=== PATIENT | female | born 1965 ===

== ENCOUNTER 2018-08-04 15:43 | Outpatient (REF) | payer BC, SELFPAY ==
--- NOTE | 2018-08-04 11:30 | PAPFT_PTH ---
PATIENT: Norma Martínez LOC: DEE U#:[id number] AGE/SX: 52/F ROOM: RE08/04/[address]: BO Johnson : 1965 BED: DIS: 08/04/2018 SPEC #: [id number] RECD: 08/04/18 18:01 STATUS: COLLEEN REQ #: [id number] EVAN: 08/04/18 11:[address]: Kamilla Cade DEPT: [facility] Cytology RECD BY: Arielle Tolliver Tissues: 1 - CX/ENDOCX FOR PAP SMEARS Procedures: PAP THIN PREP/UVM Screening HPV DNA PROBE Comments: [id number]
== END 2018-08-04 16:03 ==
LOC: LBN 15:43
PROVIDERS: Visit Provider Nurse Practitioner Family
DX: Z12.4 Encounter for screening for malignant neoplasm of cervix (principal); Z11.51 Encounter for screening for human papillomavirus (HPV)
CPT/HCPCS: 88142; 87624

== ENCOUNTER 2019-01-22 14:45 | Outpatient (REF) | payer BC, SELFPAY ==
--- NOTE | 2019-01-22 13:20 | PAPFT_PTH ---
PATIENT: Norma Martínez LOC: DEE U#:[id number] AGE/SX: 53/F ROOM: RE01/22/[address]: Britt John APRN : 1965 BED: DIS: 01/22/2019 SPEC #: [id number] RECD: 01/22/19 18:26 STATUS: COLLEEN [place] #: [id number] EVAN: 01/22/19 13:[address]: Britt John DEPT: [facility] Cytology RECD BY: Arielle Tolliver Tissues: 1 - CX/ENDOCX FOR PAP SMEARS Procedures: PAP THIN PREP/UVM Screening HPV DNA PROBE Comments: [id number]
== END 2019-01-22 15:05 ==
LOC: LBN 14:45
PROVIDERS: PCP Nurse Practitioner Adult Health; Visit Provider Nurse Practitioner Adult Health
DX: Z12.4 Encounter for screening for malignant neoplasm of cervix (principal); Z11.51 Encounter for screening for human papillomavirus (HPV)
CPT/HCPCS: 88142; 87624

== ENCOUNTER 2019-04-03 01:13 | Emergency (ER) | payer BC, SELFPAY ==
[2019-04-03] VITALS (20 sets, daily range): BP systolic 101–131; BP diastolic 53–67; PULSE 52–69; RESP 11–22; TEMP 36.6–36.8; O2SAT 95–98
--- NOTE | 2019-04-03 01:27 | W.ED.GENAD ---
Discharge Plan Disposition Patient Disposition: HOME Condition: Stable Discharge Details Chief Complaint: Dizzy/Sync Clinical Impression: Vertigo ED Provider: Mukesh Stringer Home Meds and New Rx's Prescriptions: New meclizine 25 mg tablet 25 mg PO TID PRN (Reason: dizziness) Qty: 30 RF: 0 scopolamine base 1 mg over 3 days patch 3 day 1 patch TD Q3D PRN (Reason: motion sickness) Qty: 10 RF: 0 ondansetron 4 mg tablet,disintegrating 4 mg PO QID PRN (Reason: nausea and vomiting) Qty: 30 RF: 0 No Action vitamin B complex tablet 1 tab PO DAILY PRNRF: 0 epinephrine [EpiPen] 0.3 mg/0.3 mL auto-injector 0.3 mg IM ONCE PRN (Reason: anaphylaxis/cold urticaria) Qty: 2 RF: 0 flaxseed oil 1,000 MG capsule 1,000 mg PO RF: 0 calcium carbonate-vitamin D3 1 EACH tablet 1 ea PO DAILY RF: 0 Lactobacillus acidophilus 1 EACH capsule 1 ea PO PRN RF: 0 fish,bora,flax oils-om3,6,9no1 [[place] 3-6-9 Complex] 400 MG capsule 400 mg PO PRN RF: 0 Discharge Instructions Instructions: Vertigo (ED) Additional Instructions: follow up with your primary care provider if you are not feeling better in 3-4 days if you have weakness, chest pain/pressure, difficulty breathing, slurred speech or severe headache/neck pain return to the emergency department Medical Decision Making 53 yo female with 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 She was admitted to [facility] 3 weeks ago per pt for low heart rate that resolved and was worried this was causing her symptoms tonight so called ems. On arrival she has stable vitals including heart rate and is in sinus rhythm. She denies chest pain/pressure, weakness, sob, abd pain. She has no focal neuro deficits and reassuring hiints exam so doubt central vertigo, cva. She has nystagmus when looking to the left that is horizontal and increased symptoms with head movement so suspect peripheral vertigo. I recommended trying meclizine and also checking lab work for possible electrolyte abnormalities but she wants to think about it before having any tests done as she really just wanted to know that her heart rate was normal. Will reexamine and discuss further. She has no headaches, brody syndrome or cranial nerve palsies so doubt carotid dissection and no posterior neck pain or face paresthesia so doubt vertebral artery dissection pt is declining labs or other testing. She is still not sure if she wants to take any medicine. I advised that she is unlikely to feel better in any meaningful time without taking medicine and the meclizine is a medicine that is commonly taken for her complaints. She still would like more time to think about this. She has capacity to make her own decisions and is willing to take the risks of not having a workup done and declining meds. I will reevaluate to see if she would like anything done for her symptoms and would like any work up. pt has decided she wants to go home with the medications and will decide if she will take them from there. She came in tonight because she was worried her heart rate was low and when she found it wasn't decided she didn't want any other interventions or workup at this time. She will f/u with her pcp and return if she changes her mind or if worsening Differential Diagnosis vertigo, bppv, arrythmia ECG Data Attestation: I personally reviewed and interpreted this ECG (s) as follows: Prior ECG tracings: not available for review Interpretation: sinus rhythm, rate of 60, pr 146, no acute st t wave ischemic findings HPI General Mode of arrival: EMS. Date/Time Provider Initiated Documentation: 04/03/19 01:14. Limitations to Documentation: no limitations. Information obtained by: patient. History of Present Illness 53 year old F presents to the emergency department with the chief complaint of dizzy, described as moderate, Patient started experiencing this hour(s) (1) and it has been constant. Movement worsens symptoms (head movement) . Patient notes nausea/vomiting. Patient did receive the following treatments prior to arrival, none Related Data Home Medications Medication Instructions Recorded Confirmed flaxseed oil 1,000 mg PO 08/20/13 03/19/19 Lactobacillus acidophilus 1 ea PO PRN 08/28/14 03/19/19 calcium carbonate-vitamin D3 1 ea PO DAILY 08/28/14 03/19/19 fish,bora,flax oils-om3,6,9no1 400 mg PO PRN 01/16/18 03/19/19 [Moss[place]rock 3-6-9 Complex Softgel] vitamin B complex 1 tab PO DAILY PRN 03/19/19 03/19/19 epinephrine 0.3 mg/0.3 mL 0.3 mg IM ONCE PRN #2 each 03/30/19 03/30/19 injection, auto-injector meclizine 25 mg PO TID PRN #30 tab 04/03/19 ondansetron 4 mg PO QID PRN #30 tab 04/03/19 scopolamine base 1 patch TD Q3D PRN #10 each 04/03/19 Previous Rx's Medication Instructions Recorded epinephrine 0.3 mg/0.3 mL 0.3 mg IM ONCE PRN #2 each 03/30/19 injection, auto-injector meclizine 25 mg PO TID PRN #30 tab 04/03/19 ondansetron 4 mg PO QID PRN #30 tab 04/03/19 scopolamine base 1 patch TD Q3D PRN #10 each 04/03/19 Allergies Allergy/AdvReac Type Severity Reaction Status Date / Time aspirin Allergy Unknown eyelid Verified 03/30/19 15:10 swelling General Stated Complaint: Dizzy/Sync TOMAS: 3 Review of Systems Review of Systems All systems reviewed & are unremarkable except as noted in HPI and below Constitutional Denies chills, Denies fever(s) and Denies weakness Cardiovascular Denies chest pain and Denies dyspnea Respiratory Denies dyspnea Gastrointestinal Denies abdominal pain Musculoskeletal Denies joint swelling Neurologic Denies weakness [facility] Medical History (Updated 03/31/19 @ 09:50 by Britt John NP) Family history of blood coagulation disorder (Chronic 10/04/16) Hot flashes (Chronic) Urticaria due to cold (Acute) Surgical History tooth extractoin w/ implant (Inactive 10/20/17) Social History Smoking/Tobacco Use Status: Never Alcohol Intake: never Drug use: Never Substance use type: does not use Adopted: No Household members: significant other Number of Children: 0 Communication Needs: None Education Level: college Do you need help understanding health information?: Never current occupation: Teacher, artist Pets and animals: Yes Pets and animals: dog(s) Sexually active: Yes Current gender identity: female What type of physical activity do you participate in: regular exercise Frequency: 3-4 times per week Seatbelt use: always Working smoke detector in home: Yes Fire extinguisher in home: Yes Carbon monox detector in home: Yes Do you feel safe at home: Yes Do you feel safe in your relationship?: Yes History History 0 Para Hx # Term Pregnancies Multiple births Hx # Pregnancies Ectopic pregnancies AB induced Hx Number of Living Children AB spontaneous Exam Const General: no acute distress Orientation: alert HENMT Head: normal to inspection Ears: external ears normal General nose exam: external nose normal Mouth: moist mucous membranes Eyes General: appearance normal, both eyes and all related structures Neck Neck: normal visual inspection Resp Effort & Inspection: normal respiratory effort and able to speak in complete sentences Cardio Rate: regular rate Skin General skin exam: no rashes or lesions noted Neuro General: alert and oriented x3 Extrem General: normal to inspection Psych Mental Status: mental status grossly normal Course Vital Signs Temperature 36.6 C 04/03/19 01:11 Pulse 64 04/03/19 01:11 Respiratory Rate 18 04/03/19 01:11 Blood Pressure 101/66 04/03/19 01:11 Pulse Oximetry 97 04/03/19 01:11 Temperature 36.6 C 04/03/19 01:11 Temperature Source Tympanic 04/03/19 01:11 Pulse 64 04/03/19 01:11 Respiratory Rate 18 04/03/19 01:11 Respiratory Effort Non-Labored 04/03/19 01:19 Blood Pressure 101/66 04/03/19 01:11 Pulse Oximetry 97 04/03/19 01:11 Pain Level 0 04/03/19 01:11
[2019-04-03] MEDS: Scopolamine 1 MG/3 DAYS PATCH TD (02:38)
[2019-04-03] MEDS: Ondansetron O.D.T. 4 MG TABEF PO (02:39)
[2019-04-03] MEDS: Meclizine 25 MG TAB PO (02:40)
== END 2019-04-03 02:38 | disposition home or self-care (01) ==
LOC: ER 02:53
PROVIDERS: Emergency Provider Emergency Medicine; PCP Nurse Practitioner Adult Health
DX: R42 Dizziness and giddiness (principal)
CPT/HCPCS: 93005; 99283; 93010

== ENCOUNTER 2019-05-09 13:37 | Outpatient (CLI) | payer BC, SELFPAY ==
[2019-05-09 14:37] LABS: Abs Immature Grans 0.01 k/cumm (0.0-0.09); Absolute Basophil Count 0.02 k/cumm (0.0-0.2); Absolute Lymphocyte Count 1.84 k/cumm (1.2-3.4); Absolute Monocyte Count 0.45 k/cumm (0.11-0.7); Absolute Neutrophil Count 3.92 k/cumm (1.2-6.7); Basophils % 0.3; Eosinophils % 1.6; HGB 13.9 g/dL (12.0-15.5); Immature Grans % 0.2; Mean Corp. HGB Concentration 33.9 g/dL (32.0-36.0); Mean Corpuscular Hemoglobin 32.4 pg (27.0-33.0); Mean Corpuscular Volume 95.6 fL (80-95); Mean Platelet Volume 12.1 fL (8.0-11.0); Monocytes % 7.1; Neutrophils % 61.8; Platelet Count 235 x1000/uL (130-400); RBC 4.29 m/cumm (4.00-5.20); RBC Distribution Width 12.5 % (11.7-14.6); White Blood Cell Count 6.34 k/cumm (4.4-10.8)
[2019-05-09 15:35] LABS: ALT 32 U/L (12-78); AST 19 U/L (15-37); Albumin 3.6 g/dL (3.4-5.0); Alkaline Phosphatase 85 U/L (46-116); Bilirubin, Direct 0.09 mg/dL (0.00-0.20); Bilirubin, Total 0.4 mg/dL (0.2-1.0); Total Protein 6.5 g/dL (6.4-8.2)
[2019-05-09 15:36] LABS: Calculated LDL 88 mg/dL; Cholesterol 179 mg/dL (50-200); HDL Cholesterol 58 mg/dL (40-60); Triglyceride 168 mg/dL (30-150)
[2019-05-09 15:37] LABS: C-Reactive Protein < 0.05 mg/dL (0.0-0.3)
[2019-05-10 12:15] LABS: Lyme Ab w Rflx to Lyme Confirm Negative
[2019-05-10 15:27] LABS: ANA Interpretation Positive (NEGAT); ANA Titer Pattern 1:160 Speckled
[2019-05-11 22:24] LABS: Anaplasma phagocytophilum Negative (Negative); B. miyamotoi PCR Negative (Negative); Babesia divergens/MO-1 Negative (Negative); Babesia duncani Negative (Negative); Babesia microti Negative (Negative); Ehrlichia chaffeensis Negative (Negative); Ehrlichia ewingii/canis Negative (Negative); Ehrlichia muris eauclairensis Negative (Negative)
[2019-05-14 12:29] LABS: Testosterone, Total 20 ng/dL (8-60)
[2019-05-14 12:33] LABS: Cryoglobulin, S Negative %ppt (Negative)
[2019-05-14 12:48] LABS: Estradiol, Mass Spectrometry <10 pg/mL; Estrone 25 pg/mL
== END 2019-05-09 13:57 ==
PROVIDERS: Allergy & Immunology; PCP Nurse Practitioner Adult Health; Visit Provider Nurse Practitioner Adult Health
DX: R23.2 Flushing (principal); Z13.1 Encounter for screening for diabetes mellitus; Z13.220 Encounter for screening for lipoid disorders; Z13.29 Encounter for screening for other suspected endocrine disorder; W57.XXXA Bitten or stung by nonvenomous insect and other nonvenomous arthropods, initial encounter; N95.1 Menopausal and female climacteric states; L50.2 Urticaria due to cold and heat
CPT/HCPCS: 36415; 80061; 80076; 83519; 83721; 84403; 86157; 87798; 82595; 82670; 82679; 85025; 86038; 86140; 86618

== ENCOUNTER 2019-06-15 14:32 | Outpatient (CLI) | payer BC, SELFPAY ==
[2019-06-22 10:13] LABS: Factor V Leiden (R506Q) Mutat Negative
[2019-06-22 10:14] LABS: F5DNA Interpretation See Comments
[2019-06-22 10:22] LABS: F5DNA Reviewed By See Comments
== END 2019-06-15 14:52 ==
PROVIDERS: PCP Nurse Practitioner Adult Health; Visit Provider Family Medicine Adult Medicine
DX: D51.8 Other vitamin B12 deficiency anemias (principal); E55.9 Vitamin D deficiency, unspecified; Z83.2 Family history of diseases of the blood and blood-forming organs and certain disorders involving the immune mechanism
CPT/HCPCS: 36415; 81241

== ENCOUNTER 2020-07-15 01:05 | Outpatient (CLI) | payer BC, SELFPAY ==
--- NOTE | 2020-07-15 15:45 | DI.MAMMO_ITS ---
EXAM: MAMMO SCREENING CLINICAL HISTORY: screening,Z12.39 TECHNIQUE: Mammograms were interpreted according to the usual protocol including computer analysis w [employer] CAD system, tomosynthesis and C-view imaging. COMPARISON: FINDINGS: The breasts are of moderate density with symmetrical distribution of fibroglandular tissue. No domin ant mass or clumped microcalcification is identified in either breast. On the current examination, there is a group of small nodules of the upper inner quadrant of the left breast, the largest measuring about 6 millimeters in diameter, these are not present on prior study July 2017. These are not ideally visualized and may have irregular borders. Additional evaluati on with CC and MLO spot compression views of the left breast and left breast ultrasound recommended. No other significant change seen. IMPRESSION: Additional mammographic views of the left breast and left breast ultrasound requested as described ab rm. BI-RADS Category 0 - Assessment Incomplete: Need additional imaging evaluation Breast Density - Category B - Scattered areas of fibroglandular density
== END 2020-07-15 01:25 ==
PROVIDERS: PCP Nurse Practitioner Adult Health; Visit Provider Nurse Practitioner Adult Health
DX: Z12.31 Encounter for screening mammogram for malignant neoplasm of breast (principal); N63.22 Unspecified lump in the left breast, upper inner quadrant
CPT/HCPCS: 77063; 77067

== ENCOUNTER 2020-07-18 03:42 | Outpatient (CLI) | payer BC, SELFPAY ==
--- NOTE | 2020-07-18 | DI.MAMMO_ITS ---
EXAM: MG MAMMO SCREEN CALL BACK UNI CLINICAL HISTORY: F/U MAMMO, NODULES UIQ LT BREAST TECHNIQUE: Mammograms were interpreted according to the usual protocol including computer analysis w [facility] CAD system, tomosynthesis and C-view imaging. COMPARISON: FINDINGS: Additional mammographic views of the left breast and left breast ultrasound are interpreted in conjun ction. These examinations were obtained to evaluate multi nodular radiodensities of the medial retro areolar aspect of the left breast approximately 5 cm from nipple seen on recent mammogram. Spot compression views confirm a fairly well-circumscribed nodular radiodensities. Breast ultrasound shows couple of small cysts, measuring respectively about 4 millimeters and 6 millimeters in diamete r. The show no internal vascularity and show intermediate to low echogenicity consistent with protei naceous cyst or cyst with debris. The herrera are smooth in these are horizontally oriented. No incre ased vascularity on Doppler evaluation. IMPRESSION: Findings as described are consistent with cysts with high protein content, debris, or hemorrhage. Ma lignancy unlikely. Follow-up left breast mammogram and left breast ultrasound recommended in 6 month s. BI-RADS Category 3 - 6 month - Probably Benign Finding: Recommend follow-up mammography in 6 months Breast Density - Category B - Scattered areas of fibroglandular density
== END 2020-07-18 04:02 ==
PROVIDERS: PCP Nurse Practitioner Adult Health; Visit Provider Nurse Practitioner Adult Health
DX: R92.8 Other abnormal and inconclusive findings on diagnostic imaging of breast (principal)
CPT/HCPCS: 76642; 77063; 77067

== ENCOUNTER 2021-02-27 02:05 | Outpatient (CLI) | payer BC, SELFPAY ==
--- NOTE | 2021-02-27 07:15 | DI.US_ITS ---
Exam(s) US BREAST LT COMPLETE MG MAMMO DIAGNOSTIC UNI EXAM: MG MAMMO DIAGNOSTIC UNI and U/S breast LT complete CLINICAL HISTORY: f/u 6 mos, f/u to abnl mammo, r92.8. TECHNIQUE: Craniocaudal and mediolateral oblique Full Field Digital Mammography views of the left br east with Computer Aided Diagnosis followed by Tomosynthesis and left breast ultrasound. COMPARISON: Priors available for comparison. FINDINGS: Mammography/Tomosynthesis: Masses/Architectural Distortion: The nodules in the upper inner quadrant of the left breast appears s table compared to the prior examination. No new masses or areas of architectural distortion are iden tified. Microcalcifictions: No suspicious pleomorphic-type are seen. Skin Thickening/Nipple Retraction: None. Left breast US: Echotexture: Normal appearance of the glandular tissue. Shadowing: No suspicious foci. Cyst: There is again seen a cluster of simple cysts at the 9 o'clock position of the left breast 5 cm from the nipple. They are unchanged compared to the prior examination. Solid lesions: None seen. Ductal dilation: None. IMPRESSION: 1. No evidence of malignancy is noted. 2. Unless there is more urgent need, follow-up screening mammography is recommended, as per [employer] guidelines. 3. The findings were discussed with the patient on the date of the examination. BI-RADS Category 2 - Benign Findings Breast Density - Category B - Scattered areas of fibroglandular density Breast density Category C or D implies that the patient has dense breast tissue. Dense breast tissue can make it harder to find cancer on a mammogram. Dense breast tissue is also associated with an incr eased risk of breast cancer. This information about the result of the mammogram report was provided to the patient to raise their awareness. Use this report when you speak with the patient about their risks for breast cancer, which includes their family history. At that time, you may recommend additional screening tests (Ultrasoun d or MRI) as these tests may add significant information. A negative radiographic report should not delay biopsy if a dominant or clinically suspicious mass is present. Up to ten percent of cancers are not identified on mammography. A negative report may reinforce clinical impression. Adenosis and dense breasts may obscure an underlying neoplasm. False positive reports average 6 to 10%. Patient will receive a letter notifying them of these results.
== END 2021-02-27 02:25 ==
PROVIDERS: PCP Nurse Practitioner Adult Health; Visit Provider Nurse Practitioner Adult Health
DX: Z12.31 Encounter for screening mammogram for malignant neoplasm of breast (principal); R92.8 Other abnormal and inconclusive findings on diagnostic imaging of breast; N63.22 Unspecified lump in the left breast, upper inner quadrant; N60.12 Diffuse cystic mastopathy of left breast
CPT/HCPCS: 76642; 77061; 77065; G0279

== ENCOUNTER → 2022-02-24 02:15 | Outpatient (CLI) | payer BC, SELFPAY | PROVIDERS: PCP Nurse Practitioner Adult Health; Visit Provider Nurse Practitioner Adult Health ==

== ENCOUNTER → 2022-06-07 02:40 | Outpatient (CLI) | payer BC, SELFPAY ==
--- NOTE | 2022-06-07 15:33 | DI.MAMMO_ITS ---
Exam(s) MG MAMMO SCREENING EXAM: MG MAMMO SCREENING CLINICAL HISTORY: screening,Z12.39 TECHNIQUE: Mammograms were interpreted according to the usual protocol including computer analysis w [employer] CAD system, tomosynthesis and C-view imaging. COMPARISON: Screening Bilat Mammo from 08/03/2017 MG MG MAMMO SCREENING from 07/15/2020 MG MG MAMMO DIAGNOSTIC UNI from 02/27/2021 US US BREAST LT COMPLETE from 02/27/2021 FINDINGS: The breasts are composed of scattered fibroglandular densities, Breast Density category B. Two small adjacent nodules are again noted in the medial left breast. No suspicious masses or suspic ious microcalcifications are seen. No skin thickening or abnormal axillary lymph nodes are seen. There has been no significant change from prior exams. IMPRESSION: BI-RADS Cat 2 - Benign Findings Yearly screening mammography is recommended. Breast Density - Category B, scattered fibroglandular densities. A negative radiographic report should not delay biopsy if a dominant or clinically suspicious mass is present. Up to ten percent of cancers are not identified on mammography. A negative report may reinforce clinical impression. Adenosis and dense breasts may obscure an underlying neoplasm. False positive reports average 6 to 10%. Patient will receive a letter notifying them of these results.
== END ==
PROVIDERS: PCP Nurse Practitioner Adult Health; Visit Provider Nurse Practitioner Adult Health
DX: Z12.31 Encounter for screening mammogram for malignant neoplasm of breast (principal)
CPT/HCPCS: 77063; 77067

== ENCOUNTER 2024-02-29 14:43 | Outpatient (REF) | payer BC, SELFPAY ==
--- NOTE | 2024-02-29 14:25 | PAPFT_PTH ---
PATIENT: Norma Martínez LOC: DEE U#:[id number] AGE/SX: 58/F ROOM: RE02/29/[address]: Shirley Stringer NP : 1965 BED: DIS: 02/29/2024 SPEC #: [id number] RECD: 02/29/24 18:00 STATUS: COLLEEN RESheri #: [id number] EVAN: 02/29/24 14:[address]: Shirley Stringer NP DEPT: [facility] Cytology RECD BY: Arielle Tolliver ENTERED: 02/29/24 18:01 SP TYPE: PAPFT OTHR DR: Britt John APRN Tissues: 1 - CX/ENDOCX FOR PAP SMEARS Procedures: PAP THIN PREP/UVM Screening HPV DNA PROBE Comments: [id number]
== END 2024-02-29 14:44 | disposition home or self-care (01) ==
LOC: LBN 14:43
PROVIDERS: PCP Nurse Practitioner Adult Health; Visit Provider Nurse Practitioner Women's Health
DX: Z11.51 Encounter for screening for human papillomavirus (HPV) (principal); Z01.419 Encounter for gynecological examination (general) (routine) without abnormal findings
CPT/HCPCS: 88142; 87624

== ENCOUNTER 2024-05-28 01:18 | Outpatient (CLI) | payer BC, SELFPAY ==
--- NOTE | 2024-05-28 09:00 | DI.MAMMO_ITS ---
Exam(s) MAMMO SCREENING EXAM: MAMMO SCREENING CLINICAL HISTORY: screening Z12.39 TECHNIQUE: Mammograms were interpreted according to the usual protocol including computer analysis w [employer] CAD system, tomosynthesis and C-view imaging. COMPARISON: 2016 through 2021 FINDINGS: The breasts are composed of scattered fibroglandular densities, Breast Density category B. No suspicious masses or suspicious microcalcifications are seen. No skin thickening or abnormal axillary lymph nodes are seen. There has been no significant change from prior exams. IMPRESSION: BI-RADS Category 1, Negative mammogram Yearly screening mammography is recommended. Breast Density - Category B, scattered fibroglandular densities. A negative radiographic report should not delay biopsy if a dominant or clinically suspicious mass is present. Up to ten percent of cancers are not identified on mammography. A negative report may reinforce clinical impression. Adenosis and dense breasts may obscure an underlying neoplasm. False positive reports average 6 to 10%. Patient will receive a letter notifying them of these results.
== END 2024-05-28 01:38 ==
LOC: DI 01:18
PROVIDERS: PCP Nurse Practitioner Adult Health; Visit Provider Nurse Practitioner Adult Health
DX: Z12.31 Encounter for screening mammogram for malignant neoplasm of breast (principal)
CPT/HCPCS: 77063; 77067

== ENCOUNTER 2024-06-20 02:11 | Outpatient (CLI) | payer BC, SELFPAY ==
[2024-06-20 14:20] LABS: Abs Immature Grans 0.01 10^3/uL (0.0-0.06); Absolute Basophil Count 0.04 10^3/uL (0.0-0.2); Absolute Eosinophil Count 0.15 10^3/uL (0.0-0.7); Absolute Lymphocyte Count 2.04 10^3/uL (1.2-3.4); Absolute Monocyte Count 0.57 10^3/uL (0.1-0.8); Basophils % 0.6 %; Eosinophils % 2.1 %; HCT 43.1 % (36.0-46.0); HGB 14.4 g/dL (11.2-15.7); Immature Grans % 0.1 %; Lymphocytes % 29.1 %; MCH 31.9 pg (27.0-33.0); MCHC 33.4 % (32.0-36.0); MCV 95 fL (80-95); MPV 10.8 fL (8.0-11.0); Monocytes % 8.1 %; Platelet Count 237 10^3/uL (130-400); RBC 4.52 10^6/uL (3.93-5.22); RDW 12.5 % (11.7-14.6); RDW-SD 43.1 fL; WBC 7.01 10^3/uL (4.4-10.8)
[2024-06-20 14:22] LABS: Bilirubin Negative (Negative); Blood Trace-intact (Negative); Clarity Clear (Clear); ESR 8 mm/hr (0-30); Glucose Negative (Negative); Ketones Negative (Negative); Leukocyte Esterase Moderate (Negative); Nitrite Negative (Negative); Urobilinogen 0.2 mg/dL (Up to 0.2)
[2024-06-20 14:45] LABS: Epithelial Cells Many HPF (Negative); Other Cells Few Renal (Negative)
[2024-06-20 14:46] LABS: Bacteria Few HPF (Negative); C & S Indicated? No/Sq. Contamination; Casts Negative LPF (Negative); Crystals Negative HPF (Negative); Mucus Negative (Negative)
[2024-06-20 15:56] LABS: Anion Gap 8.3 mmol/L (3-11); BUN 11 mg/dL (7-18); CO2 29.7 mmol/L (21.0-32.0); CREATININE 0.9 mg/dL (0.55-1.02); Calcium 9.3 mg/dL (8.5-10.1); Chloride 103 mmol/L (98-107); Glucose 118 mg/dL (74-106); Potassium 3.8 mmol/L (3.5-5.1); Sodium 141 mmol/L (136-145); TSH 0.98 uIU/Ml (0.36-3.74)
[2024-06-20 16:11] LABS: C-Reactive Protein < 0.50 mg/dL (<or=0.5)
[2024-06-21 15:39] LABS: ANA Interpretation Positive (Negative); ANA Titer Pattern 1:320 Homogeneous
== END 2024-06-20 02:12 | disposition home or self-care (01) ==
LOC: LBO 02:11
PROVIDERS: PCP Nurse Practitioner Adult Health; Referring Provider Emergency Medicine; Visit Provider Emergency Medicine
DX: L50.2 Urticaria due to cold and heat (principal); H04.123 Dry eye syndrome of bilateral lacrimal glands; E03.9 Hypothyroidism, unspecified; I10 Essential (primary) hypertension; R30.0 Dysuria
CPT/HCPCS: 80048; 85652; 81003; 81015; 84443; 85025; 86038; 86140

== ENCOUNTER 2024-06-28 03:01 | Outpatient (CLI) | payer BC, SELFPAY ==
[2024-06-28 15:33] LABS: Abs Immature Grans 0.02 10^3/uL (0.0-0.06); Absolute Basophil Count 0.04 10^3/uL (0.0-0.2); Absolute Eosinophil Count 0.13 10^3/uL (0.0-0.7); Absolute Lymphocyte Count 2.39 10^3/uL (1.2-3.4); Absolute Neutrophil Count 3.88 10^3/uL (1.2-6.7); Basophils % 0.6 %; Eosinophils % 1.8 %; HCT 42.8 % (36.0-46.0); HGB 14.4 g/dL (11.2-15.7); Immature Grans % 0.3 %; Lymphocytes % 33.9 %; MCH 31.5 pg (27.0-33.0); MCHC 33.6 % (32.0-36.0); MCV 94 fL (80-95); Monocytes % 8.5 %; Neutrophils % 54.9 %; Platelet Count 257 10^3/uL (130-400); RBC 4.57 10^6/uL (3.93-5.22); RDW 12.6 % (11.7-14.6); RDW-SD 42.9 fL; WBC 7.06 10^3/uL (4.4-10.8)
[2024-06-28 16:24] LABS: ALT 29 U/L (14-59); AST 18 U/L (15-37); Albumin 3.9 g/dL (3.4-5.0); Alkaline Phosphatase 104 U/L (46-116); Anion Gap 9.5 mmol/L (3-11); BUN 18 mg/dL (7-18); Bilirubin, Total 0.36 mg/dL (0.2-1.0); CO2 26.5 mmol/L (21.0-32.0); CREATININE 0.9 mg/dL (0.55-1.02); Calcium 9.6 mg/dL (8.5-10.1); Calculated LDL 122 mg/dL (<100); Chloride 104 mmol/L (98-107); Cholesterol 228 mg/dL (<200); Glucose 98 mg/dL (74-106); HDL Cholesterol 83 mg/dL (40-60); Potassium 4.5 mmol/L (3.5-5.1); Sodium 140 mmol/L (136-145); Total Protein 7.6 g/dL (6.4-8.2); Triglyceride 116 mg/dL (<150)
[2024-06-29 11:38] LABS: Ro60 Ab, IgG <7.0 CU (<20.0); SS-A/Ro, IgG <2.3 CU (<20.0); dsDNA Ab, IgG <22.0 IU/mL (<27.0)
[2024-07-02 13:03] LABS: Smooth Muscle Ab Screen Negative (Negative)
== END 2024-06-28 03:02 | disposition home or self-care (01) ==
LOC: LBO 03:01
PROVIDERS: PCP Nurse Practitioner Adult Health; Referring Provider Nurse Practitioner Adult Health; Visit Provider Nurse Practitioner Adult Health
DX: Z13.220 Encounter for screening for lipoid disorders (principal); Z13.1 Encounter for screening for diabetes mellitus; R69 Illness, unspecified; R76.8 Other specified abnormal immunological findings in serum; H04.123 Dry eye syndrome of bilateral lacrimal glands
CPT/HCPCS: 36415; 80053; 80061; 84443; 85025; 86225; 86235; 86255